=== PATIENT | male | born 1950 | race Caucasian/White ===

== ENCOUNTER 2021-04-10 09:22 | Outpatient (CLI) | payer MEDICARE ==
[2021-04-10 11:28] LABS: #Basophils 0.1 thou/uL (0.0-0.2); #Lymphocytes 2.7 thou/uL (1.20-3.40); #Monocytes 0.6 thou/uL (0.11-0.59); #Neutrophils 3.5 thou/uL (1.40-6.50); %Basophils 1.2 % (0.0-1.0); %Eosinophils 0.5 % (0.0-10.0); %Neutrophils 50.3 % (42.0-75.0); Hemoglobin 14.8 g/dL (14.0-18.0); Mean Corpuscular HGB CONC 33.7 g/dL (32.0-36.0); Mean Corpuscular Hemoglobin 28.9 pg (27.0-31.0); Mean Corpuscular Volume 85.6 fL (78.0-98.0); Mean Platelet Volume 8.3 fL (7.4-10.4); Platelet Count 195 thou/uL (130-400); RBC Distribution Width 11.7 % (11.5-14.5); Red Blood Cell (RBC) Count 5.13 mill/uL (4.70-6.10); White Blood Cell (WBC) Count 6.9 thou/uL (4.8-10.8)
[2021-04-10 11:38] LABS: Hemoglobin A1c 9.9 % (4.0-6.0)
[2021-04-10 12:09] LABS: ALT (SGPT) 37 U/L (8-55); AST (SGOT) 26 U/L (5-34); Albumin 4.4 g/dL (3.4-4.8); Alkaline Phosphatase 45 U/L (40-110); Anion Gap 15 mmol/L (10-20); BUN (Urea Nitrogen) 18 mg/dL (8.4-25.7); Bilirubin, Total 1.1 mg/dL (0.2-1.2); Calc. Creatinine Clearance 0 mL/min (70-130); Calcium 9.8 mg/dL (7.8-10.44); Carbon Dioxide 25 mmol/L (23-31); Cardiac Risk 4.8 (Less than 4.5); Chloride 102 mmol/L (98-107); Cholesterol 152 mg/dl (< 200 Desired); Globulin 2.8 g/dL (2.4-3.5); Glucose 167 mg/dL (83-110); HDL Cholesterol 32 mg/dL (>60 Neg Risk); LDL Cholesterol, Calculated 88 mg/dL; Potassium 3.6 mmol/L (3.5-5.1); Protein, Total 7.2 g/dL (5.8-8.1); Sodium 138 mmol/L (136-145); Triglycerides 162 mg/dL (Less than 150)
== END 2021-04-10 09:23 | disposition home or self-care (01) ==
LOC: SCSLAB 09:22
PROVIDERS: ATTEND Family Medicine
DX: Z12.5 Encounter for screening for malignant neoplasm of prostate (principal); I10 Essential (primary) hypertension; E11.65 Type 2 diabetes mellitus with hyperglycemia; E78.5 Hyperlipidemia, unspecified
CPT/HCPCS: 36415; 80053; 80061; 83036; 85025; G0103

== ENCOUNTER 2025-06-07 11:44 | Outpatient (CLI) | payer MEDICARE ==
[2025-06-07 12:56] LABS: #Basophils Less than 0.03 10x3/uL (0.0-0.2); #Eosinophils Less than 0.03 10x3/uL (0.0-0.7); #Monocytes 0.78 10x3/uL (0.11-0.59); #Neutrophils 4.77 10x3/uL (1.40-6.50); %Basophils 0.2 % (0.0-1.0); %Eosinophils 0.3 % (0.0-10.0); %Lymphocytes 15.8 % (21.0-51.0); %Monocytes 11.7 % (0.0-10.0); %Neutrophils 71.7 % (42.0-75.0); Hematocrit 40.0 % (42.0-52.0); Hemoglobin 13.5 g/dL (14.0-18.0); Mean Corpuscular Hemoglobin 29.4 pg (27.0-31.0); Mean Corpuscular Volume 87.1 fL (78.0-98.0); Platelet Count 182 10x3/uL (130-400); Red Blood Cell (RBC) Count 4.59 mill/uL (4.70-6.10); White Blood Cell (WBC) Count 6.65 10x3/uL (4.8-10.8)
[2025-06-07 13:03] LABS: Glucose, Urine (Dipstick) Normal (Negative); Leukocyte 500 Leu/uL (Negative); Protein, Urine (Dipstick) 30 mg/dL (Neg-Trace); RBC/HPF Greater than 50 HPF (0-3); Specific Gravity, Urine 1.019 (1.002-1.036); WBC/HPF Greater than 50 HPF (0-3)
[2025-06-07 13:10] LABS: Bacteria/HPF 1+ HPF (None Seen)
[2025-06-07 13:11] LABS: INR-International Normal Ratio 1.8; PTT 38.7 sec (22.9-36.1); Prothrombin Time 21.3 sec (12.0-14.7)
[2025-06-07 13:24] LABS: Anion Gap 14 mmol/L (10-20); BUN (Urea Nitrogen) 26 mg/dL (8.4-25.7); Calc. Creatinine Clearance 0 mL/min (70-130); Calcium 9.7 mg/dL (7.8-10.44); Carbon Dioxide 27 mmol/L (23-31); Chloride 104 mmol/L (98-107); Glucose 133 mg/dL (83-110); Potassium 3.8 mmol/L (3.5-5.1); Sodium 141 mmol/L (136-145)
== END 2025-06-07 11:45 | disposition home or self-care (01) ==
LOC: LABBT 11:44
PROVIDERS: ATTEND Urology
DX: Z01.818 Encounter for other preprocedural examination (principal); E11.65 Type 2 diabetes mellitus with hyperglycemia; I25.10 Atherosclerotic heart disease of native coronary artery without angina pectoris; N40.1 Benign prostatic hyperplasia with lower urinary tract symptoms; I48.4 Atypical atrial flutter; N35.912 Unspecified bulbous urethral stricture, male; R39.12 Poor urinary stream; N13.8 Other obstructive and reflux uropathy
CPT/HCPCS: 80048; 81001; 85025; 85610; 85730; 87077; 87086; 87186; 93005; 93010

== ENCOUNTER 2025-06-10 06:17 | Day surgery (SDC) | payer MEDICARE ==
[2025-06-07 12:15] VITALS: BMI 30.5
[2025-06-10] MEDS ORDERED: LevoFLOXacin D5W 500 mg (100 mL) BAG ONE (07:15)
[2025-06-10] MEDS ORDERED: fentaNYL PF 100 MCG/2 ML SYRINGE ONE (08:28)
[2025-06-10] MEDS ORDERED: PROPOFOL 20 ML ONE (08:28)
[2025-06-10] MEDS ORDERED: Ondansetron PF 4 MG/2 ML Vial ONE (08:29)
[2025-06-10] MEDS ORDERED: Lidocaine 1% PF 5 ML VIAL ONE (08:45)
[2025-06-10] MEDS ORDERED: Oxybutynin 5 MG TAB ONE (10:18)
== END 2025-06-10 12:40 | disposition home or self-care (01) ==
LOC: SDC 06:17
PROVIDERS: ATTEND Urology
PROC: 0V508ZZ Destruction of Prostate, Via Natural or Artificial Opening Endoscopic (ICD-10-PCS; principal; 2025-06-10)
DX: N40.1 Benign prostatic hyperplasia with lower urinary tract symptoms (principal); N13.8 Other obstructive and reflux uropathy; R39.12 Poor urinary stream; N35.912 Unspecified bulbous urethral stricture, male; I10 Essential (primary) hypertension; I25.10 Atherosclerotic heart disease of native coronary artery without angina pectoris; I48.4 Atypical atrial flutter; E11.65 Type 2 diabetes mellitus with hyperglycemia; E78.5 Hyperlipidemia, unspecified; E03.9 Hypothyroidism, unspecified; Z98.84 Bariatric surgery status; Z98.42 Cataract extraction status, left eye; Z98.41 Cataract extraction status, right eye; Z90.89 Acquired absence of other organs; Z88.8 Allergy status to other drugs, medicaments and biological substances; Z79.899 Other long term (current) drug therapy
CPT/HCPCS: 52601; 82962; A4333; J1100; J1956; J2704; J3010; 36416